=== PATIENT | female | born 1975 | race Caucasian/White ===

== ENCOUNTER 2021-01-25 17:51 | Emergency (ER) | payer BC, OTHER ==
[2021-01-25 18:08] VITALS: BMI 21.1
[2021-01-25] MEDS ORDERED: METOCLOPRAMIDE HCL INJECTION 10 MG/2 ML VIAL IVPB ONE (18:32)
[2021-01-25] MEDS ORDERED: SODIUM CHLORIDE 0.9% 500 ML INFUS.BAG IV ONE (18:45)
[2021-01-25 20:23] LABS: BASO % 0.6 % (0-2.0); EOS % 0.3 % (0-4.5); HEMATOCRIT 42.2 % (32.4-45.2); HEMOGLOBIN 14.4 GM/dL (10.7-15.3); LYMPH % 12.7 % (8-40); MCH 28.9 pg (25.7-33.7); MEAN CELL VOLUME 84.9 fl (80-96); MEAN PLT VOLUME 8.8 fl (7.5-11.1); MONO % 6.6 % (3.8-10.2); NEUT % 79.8 % (42.8-82.8); PLATELET COUNT 313 K/MM3 (134-434); RBC 4.97 M/mm3 (3.60-5.2); RDW 13.4 % (11.6-15.6); WHITE BLOOD COUNT 11.4 K/mm3 (4.0-10.0)
[2021-01-25 20:32] LABS: CHLORIDE 103 mmol/L (98-107); SODIUM 135 mmol/L (136-145)
[2021-01-25] MEDS ORDERED: DEXAMETHASONE SOD PHOSPHATE 10 MG/1 ML VIAL IVPUSH ONE (20:34)
[2021-01-25] MEDS ORDERED: KETOROLAC TROMETHAMINE 15 MG/ML VIAL IVPUSH ONE (20:34)
[2021-01-25] MEDS ORDERED: MAGNESIUM SULF 50% (8.12 MEQ/2 ML-1 GM VIAL) IVPB ONE (20:34)
[2021-01-25 20:35] LABS: ALBUMIN 3.8 g/dl (3.4-5.0); ANION GAP 6 MMOL/L (8-16); BLOOD UREA NITROGEN 13.8 mg/dL (7-18); CALCIUM 9.2 mg/dL (8.5-10.1); CO2 26 mmol/L (21-32); GLUCOSE,RANDOM 100 mg/dL (74-106); LIPASE 62 U/L (73-393)
[2021-01-25 20:37] LABS: CREATININE 0.8 mg/dL (0.55-1.3); SGOT/AST 41 U/L (15-37); SGPT/ALT 23 U/L (13-61)
[2021-01-25 20:38] LABS: BILIRUBIN,TOTAL 0.8 mg/dL (0.2-1)
[2021-01-25 20:40] LABS: TOT PROT 8.3 g/dl (6.4-8.2)
[2021-01-25 20:41] LABS: ALK PHOS 93 U/L (45-117)
[2021-01-25] MEDS ORDERED: MAGNESIUM SULFATE IN WATER 2 GM/50 ML IVPB IVPB ONE (20:41)
[2021-01-25 22:24] VITALS: BP 93/67; PULSE 90; TEMP 99.2
== END 2021-01-25 22:44 | disposition home or self-care (01) ==
LOC: JER 17:51
PROC: 3E033GC Introduction of Other Therapeutic Substance into Peripheral Vein, Percutaneous Approach (ICD-10-PCS; principal; 2021-01-25)
DX: R51.9 Headache, unspecified (principal)
CPT/HCPCS: 36415; 70450-TC; 71045-TC-FY; 80053; 82550; 83690; 84439; 84443; 84481; 84484; 84703; 85025; 87804; 93005; 93010; 99285-25; C9803; J1100; U0003